=== PATIENT | female | born 1995 | race Two or more races ===

== ENCOUNTER 2024-04-05 10:45 | Observation (INO) | payer MEDICAID ==
[2024-04-05] MEDS ORDERED: PREN-96 PO (11:42)
--- NOTE | 2024-04-05 15:28 | DVHDS2 ---
Physician Discharge Progress N Final Diagnosis: IUP 21 wk, decreased movement Operations or Procedures: Operations or Procedures Doppler FHR present Condition on Discharge: Stable Disposition: Home Discharge Instructions: Diet: Regular Activity: No Restrictions, As Tolerated Follow Up/Referral: as scheduled per Dr. Thomson Medications: No new meds Follow Up Care: Discharge Statement: "Patient was advised to return to the ER or call 911 if any headaches, dizziness, shortness of breath, chest pain, abdominal pain, bleeding, fevers, or worsening of medical condition. Patient was counseled about treatment plan, medications, possible side effects, patientverbalized understanding. All questions were answered to the best of my ability. This discharge took greater then 30 minutes in planning, reviewing documentation, counseling the patient, and discussing with other team members." Visit Coding OBGYN Date of Service: Apr 05, 2024 Billing Provider: LEANNA RUBIO DO POLYMERIZATION ENGINEER Common Visit Codes: 93736-KOS/OBS SAME DATE (LOW) LEANNA RUBIO DO Apr 05, 2024 15:28
== END 2024-04-05 11:57 | disposition home or self-care (01) ==
LOC: LDRP 10:45 → UNDOADMOB 10:45 → LDRP 11:30 → UNDODISOB 11:57
PROVIDERS: ADMIT Obstetrics & Gynecology; ATTEND Obstetrics & Gynecology
DX: O36.8120 Decreased fetal movements, second trimester, not applicable or unspecified (principal); Z3A.21 21 weeks gestation of pregnancy; Z79.899 Other long term (current) drug therapy; Z98.890 Other specified postprocedural states
CPT/HCPCS: 59025; 81002; 94760; G0378

== ENCOUNTER → 2024-06-12 | Outpatient (CLI) | payer MEDICAID ==
[~2024-06-12] MED LIST: PREN-96 PO
[2024-06-12 10:21] LABS: Basophils # (auto) 0 10 ^3/uL (0-0.2); Basophils % (auto) 0.4 % (0.0-2.0); Eosinophils # (auto) 0.1 10 ^3/uL (0-0.8); Eosinophils % (auto) 0.8 % (0.0-7.0); Hematocrit 39.7 % (36.0-46.0); Hemoglobin 13.6 g/dL (12.2-16.2); Lymphocytes # (auto) 2.1 10 ^3/uL (0.4-5.4); Lymphocytes % (auto) 22.2 % (10.0-50.0); Mean Corpuscular Hemoglobin 30.7 pg (28.0-32.0); Mean Corpuscular Hgb Conc. 34.1 g/dL (32.0-36.0); Mean Corpuscular Volume 89.9 fL (80.0-100.0); Monocytes # (auto) 0.6 10 ^3/uL (0-1.3); Monocytes % (auto) 6.7 % (0.0-12.0); Neutrophils # (auto) 6.7 10 ^3/uL (1.6-8.6); Neutrophils % (auto) 69.9 % (37.0-80.0); Nucleated Red Blood Cells % 0.1 %; Platelet Count (auto) 299 10^3/uL (140-450); Red Blood Cells 4.42 10^6/uL (4.0-5.20); Red Cell Distribution Width 12.4 % (11.8-14.3); White Blood Cell 9.5 10^3/uL (4.4-10.8)
[2024-06-12 10:55] LABS: Alanine Aminotransferase 19 U/L (7-40); Alkaline Phosphatase 105 U/L (46-116); Anion Gap 8 (5-15); Aspartate Aminotransferase 16 U/L (13-40); BUN/Creatinine Ratio 10.5 (10.0-20.0); Bilirubin, Total 0.4 mg/dL (0.2-1.0); Calcium 9.2 mg/dL (8.7-10.4); Carbon Dioxide 23 mmol/L (20-31); Chloride 105 mmol/L (98-107); Glucose 81 mg/dL (74-106); Sodium 136 mmol/L (136-145)
[2024-06-12 10:58] LABS: Blood Urea Nitrogen 6 mg/dL (9-23)
[2024-06-13 12:07] LABS: Chlamydia Trachomatis, NAA Negative (Negative); Neisseria gonorrhoeae, NAA Negative (Negative)
== END | disposition home or self-care (01) ==
LOC: LAB 09:36
DX: Z34.00 Encounter for supervision of normal first pregnancy, unspecified trimester (principal); Z3A.00 Weeks of gestation of pregnancy not specified; Z79.899 Other long term (current) drug therapy
CPT/HCPCS: 36415; 80053; 82951; 83036; 85025; 86850; 86900; 86901

== ENCOUNTER 2024-07-29 23:04 | Inpatient (IN) | payer MEDICAID ==
[~2024-07-29] VITALS: Ht 155 cm; Wt 68.0 kg
[2024-07-29] MEDS: ceFAZolin 2 GM/D5W50ml 50 ML IV ONE (00:20)
[2024-07-29] MEDS: LACTATED RINGER'S 1,000 ML IV ONE (23:30)
[2024-07-29] MEDS: LACTATED RINGER'S 1,000 ML IV SCH (23:30)
[2024-07-29 23:50] LABS: Basophils # (auto) 0 10 ^3/uL (0-0.2); Basophils % (auto) 0.4 % (0.0-2.0); Eosinophils # (auto) 0.1 10 ^3/uL (0-0.8); Eosinophils % (auto) 1.3 % (0.0-7.0); Hematocrit 40.1 % (36.0-46.0); Hemoglobin 13.5 g/dL (12.2-16.2); Lymphocytes # (auto) 3.2 10 ^3/uL (0.4-5.4); Lymphocytes % (auto) 31.8 % (10.0-50.0); Mean Corpuscular Hemoglobin 28.9 pg (28.0-32.0); Mean Corpuscular Hgb Conc. 33.8 g/dL (32.0-36.0); Mean Corpuscular Volume 85.5 fL (80.0-100.0); Monocytes # (auto) 0.8 10 ^3/uL (0-1.3); Neutrophils # (auto) 5.9 10 ^3/uL (1.6-8.6); Neutrophils % (auto) 58.5 % (37.0-80.0); Nucleated Red Blood Cells % 0.1 %; Platelet Count (auto) 275 10^3/uL (140-450); Red Blood Cells 4.69 10^6/uL (4.0-5.20); Red Cell Distribution Width 12.9 % (11.8-14.3)
--- NOTE | 2024-07-29 23:53 | DVHHP2 ---
OB CC & HPI Date Date of Admission: Jul 29, 2024 Patient Identification: : 3 Para: 2 EDC: Aug 10, 2024 EGA: 38wks Chief Complaints: Reason for admission: active labor Indication for : desires repeat Admission Nurse Assessment Rev: No History of Present Complaints pt is admitted in active labor,no rom or vag bleeding. pt wants rcs with btl.use of filshie clips ,failure rate d/w pt Past Medical History Cardiac: No pertinent Hx Pulmonary: No pertinent Hx Central Nervous System: No pertinent Hx GI: No pertinent Hx Hemotology/Oncology: No pertinent Hx Hepatobiliary: No pertinent Hx Psychiatric: No pertinent Hx Musculoskeletal: No pertinent Hx Rheumotologic: No pertinent Hx Infectious Disease: No peritnent Hx ENT: No pertinent Hx Renal/: No pertinent Hx Endocrine: No pertinent Hx Dermatology: No pertinent Hx Past Surgical History: OB History OB History Care: Good Care Ultrasounds: Normal mid trimester US Obstetrical Complications: None Medical Complications: None Allergies: Coded Allergies: NO KNOWN ALLERGIES (Unverified , 07/29/24) Home Meds Reported Medications Vit W/ Ferrous Fumara ( One Daily) Daily Tab, 1 TAB PO DAILY, #30 TAB 11 Refills 04/05/24 Current Medications Current Medications Medications (Trade) Dose Ordered Sig/Vernon Route PRN Reason Start Time Stop Time Status Last Admin Lactated Ringer's 1,000 ml @ 125 mls/hr Q8H IV 07/29/24 23:30 Family & Social History Family/Social History Blood Type: Unknown Rubella: unknown RPR/VDRL: Negative GBS Status: Unknown HBsAG: Negative Review of Systems Constitutional: No symptom reported Ears, Nose, & Throat: No symptom reported Eyes: No symptom reported Pulmonary/Respiratory: No symptom reported Cardiovascular: No symptom reported Gastrointestinal: No symptom reported Genitourinary: No symptom reported Musculoskeletal: No symptom reported Skin: No symptom reported Psychiatric: No symptom reported Endocrine: No symptom reported Hemotologic/Lymphatic: No symptom reported OB Admission Exam Physical Exam HEENT: TMs Normal, Fontanelles Normal, Nasal Mucosa Normal, Eyes non-injected, Oropharynx Normal, PERRLA, Moist Membranes, EOMI Heart: Rhythm Normal Lungs: Clear Abdomen: Non tender Extremities: Normal Reflexes: Normal Cervical Dilatation: 5cm Effacement: 75% Station: -2 Membranes: Intact Heart Rate: 130's Accelerations: Accelerations Present Decelerations: No Decelerations Short Term Variability: Present Manager Front Office Variability: Average (6-25) Contractions on Admission: < 5 Minutes Apart OB Plan Plan Admitting Diagnosis: desires REPEAT SECTION with btl iup at 38wks in active labor previous csx2 Plan: Section Other Plan: informed consent obtained,risks ands compl of cs including pe,dvt,infection,bleeding and failure rate with tubal d/w pt.all questions answered pt fully understands wishes to proceed with cs Visit Coding OBGYN Date of Service: Jul 29, 2024 Billing Provider: MORE MONSON DO EDGE STAINER MACHINE Common Visit Codes: [id number] OBS CARE (HIGH) EDGE STAINER MACHINE Procedure Codes: 40107-40- NON-STRESS TEST MORE MONSON DO Jul 29, 2024 23:53
[2024-07-30] VITALS (24 sets, daily range): BP systolic 88–127; BP diastolic 45–77; PULSE 68–109; RESP 14–18; TEMP 98–99; O2SAT 93–100
[2024-07-30] LABS: Urine Bacteria FEW /hpf (None Seen); Urine Blood Negative /uL (Negative); Urine Clarity Clear (Clear); Urine Color Light-Yellow (Yellow); Urine Mucus FEW (None Seen); Urine Protein, UAD Negative (Negative); Urine Specific Gravity 1.015 (1.001-1.035); Urine Squamous Epithelial Cell MOD /hpf (<5); Urine Urobilinogen Normal (Negative); Urine WBC 6 /HPF (0-5); Urine pH 6.5 (5.0-9.0)
[2024-07-30] MEDS: GUM (CHEWING) 1 GUM CHEW CHEW ONE
[2024-07-30] MEDS: LACT. RINGERS/OXYTOCIN 20UNITS 1,000 ML IV ONE
[2024-07-30 00:05] LABS: Alanine Aminotransferase 19 U/L (7-40); Albumin 4.1 g/dL (3.2-4.8); Anion Gap 11 (5-15); Aspartate Aminotransferase 21 U/L (13-40); BUN/Creatinine Ratio 12.9 (10.0-20.0); Blood Urea Nitrogen 9 mg/dL (9-23); Calcium 8.9 mg/dL (8.7-10.4); Chloride 105 mmol/L (98-107); Glucose 84 mg/dL (74-106); Potassium 3.9 mmol/L (3.5-5.1); Sodium 136 mmol/L (136-145); Total Protein 6.8 g/dL (5.7-8.2)
[2024-07-30 00:06] LABS: Bilirubin, Total 0.4 mg/dL (0.2-1.0)
[2024-07-30] MEDS ORDERED: DOCU-94 PO (00:08)
[2024-07-30] MEDS ORDERED: HYDR-4072 PO (00:08)
[2024-07-30] MEDS ORDERED: IBUP-1456 PO (00:08)
[2024-07-30] MEDS ORDERED: ONDANSETRON HCL 4 MG/2 ML VIAL ONE (00:11)
[2024-07-30] MEDS ORDERED: MORPHINE SULF PF 5 MG/10 ML VIAL ONE (00:11)
[2024-07-30] MEDS ORDERED: DexAMETHasone SOD PHOS 10MG/1ML VIAL INJ ONE (00:11)
[2024-07-30] MEDS ORDERED: fentaNYL CITRATE 100 MCG/2 ML VL ONE (00:11)
[2024-07-30] MEDS ORDERED: oxyTOCIN 10 UNIT/ML 10ML VIAL ONE (00:11)
[2024-07-30 00:19] LABS: Alkaline Phosphatase 187 U/L (46-116); Carbon Dioxide 20 mmol/L (20-31)
[2024-07-30 00:20] LABS: Amphetamine Screen, Urine Neg (NEGATIVE); Barbiturate Scree,Urine Neg (NEGATIVE); Benzodiazephine Screen, Urine Neg (NEGATIVE); Cannabinoid Screen, Urine Neg (NEGATIVE); Cocaine Screen, Urine Neg (NEGATIVE); Opiate Scree,Urine Neg (NEGATIVE); Phencyclidine Screen, Urine Neg (NEGATIVE)
[2024-07-30] MEDS ORDERED: SODIUM CHLORIDE LOCK 10 ML ONE (00:33)
[2024-07-30] MEDS ORDERED: PHENYLEPHRINE HCL 10 MG/ML VL ONE (00:33)
--- NOTE | 2024-07-30 01:04 | DVHOP2 ---
Operative Report DATE OF OPERATION: 07/30/24 PREOPERATIVE DIAGNOSES: 1. 38 wks pregnancyinlabor , desires repeat section. 2. Desires bilateral tubal ligation,previous cs x2 POSTOPERATIVE DIAGNOSES: same PROCEDURES: Repeat section with bilateral tubal ligation via Filschie Clips SURGEON: Leanne Thomson D.O./mona ANESTHESIOLOGIST: Lidia klein crna TYPE OF ANESTHESIA : spinal ESTIMATED BLOOD LOSS: 500 mL CONSENT: The patient was informed of the risks and benefits of the procedure. These include but are not limited to , complications of anesthesia, postoperative infection, incomplete relief of symptoms, recurrence of symptoms, damage to blood vessels, nerves and tendons, deep venous thrombosis, pulmonary embolism and possible need for repeat surgery in the future. Surgery was opted. FINDINGS: Baby [g] with apgars [8] and [9]. Grossly normal appearing tubes and ovaries. TISSUE TO PATHOLOGY: Placenta. PROCEDURE IN DETAIL: The patient was taken to the operating room where she was placed under spinal anesthesia. She was then prepped and draped in the usual sterile manner in supine position with a leftward tilt. A Pfannenstiel skin incision was then made 2 cm above the symphysis pubis. This incision was carried to the underlying layer of fascia. The fascia was nicked in the midline and the incision was extended laterally. The superior aspect of the fascial incision was grasped and elevated. Underlying rectus muscle was dissected off bluntly. The same procedure was done to the inferior aspect of the fascial incision. The rectus muscles were then in the midline. Peritoneum was identified and entered. Peritoneal incision was extended superiorly and inferiorly with good visualization of the bladder. Bladder blade was inserted. Vesicouterine peritoneum was identified and entered. Lower uterine segment was incised in a transverse fashion. The was delivered from vertex presentation. The was baby [g] with Apgars of [8] and [9]. Placenta was then removed manually. Uterus was exteriorized and cleared off all clots and debris. Uterine incision was repaired using 0 Vicryl in a double-layered fashion. No bleeding was noted. Bilateral tubal ligation was then performed using Kristal. Placed in the ampullary region and identifying the fimbria distally. The isthmic portion of the right tube was clipped using Filschie Clip. The same procedure was done on the opposite side. No bleeding was noted. Peritoneum was closed using 0 Vicryl, fascia was closed using 0 Maxon, and skin was closed using serena. Estimated blood loss was noted to be 500 mL. The patient tolerated the procedure well. She was taken to the recovery room in stable condition. Visit Coding OBGYN Date of Service: Jul 30, 2024 Billing Provider: LEANNE THOMSON DO MOLD BURNER Common Visit Codes: [id number] INP/OBS CARE (HIGH) MOLD BURNER Procedure Codes: 88121-FTQXC @ TIME OF , 54425-M-[id number] DELIVERY ONLY LEANNE THOMSON DO Jul 30, 2024 01:04
--- NOTE | 2024-07-30 01:06 | POSTOP ---
Post-Operative Note Post-Operative Note Preop Diagnosis iup at 38wks in labor,desires rcs with btl,previous csx2 Postop Diagnosis: same Operation performed rcs with btl Specimen na Anesthesia: Regional Anesthesiologist: ernie Blood Loss(fluid mgmt) 500ml Surgeon More Thomson Student Financial Aid Manager mona Implant filschie Complications & Mgmt none Date 07/30/24 Time 01:04 Visit Coding OBGYN Date of Service: Jul 30, 2024 Billing Provider: MORE THOMSON DO GOLF BALL MARKER Common Visit Codes: [id number] INP/OBS CARE (HIGH) GOLF BALL MARKER Procedure Codes: 95490-OJVET @ TIME OF , 94295-U-USTREHE DELIVERY ONLY MORE THOMSON DO Jul 30, 2024 01:06
[2024-07-30] MEDS: CARBOPROST TROMETHAMINE 250 MCG/1ML VIAL IM ONE (01:10)
[2024-07-30] MEDS: NALBUPHINE HCL 10 MG/1ml INJECTION IV ONE (01:45)
[2024-07-30] MEDS ORDERED: NALOXONE HCL 0.4 MG/ML VIAL IV PRN (01:45)
[2024-07-30] MEDS ORDERED: ONDANSETRON HCL 4 MG/2 ML VIAL IV PRN ×2 (01:45)
[2024-07-30] MEDS: DIPHENOXYLATE W/ATROPINE 2.5 MG TAB ONE (02:05)
[2024-07-30] MEDS: diphenhdrAMINE HCL 50 MG/1 ML VL IV PRN (05:11)
[2024-07-30] MEDS: ACETAMINOPHEN IV 1000 MG/100ML (10MG/ML) IV PRN (05:14)
[2024-07-30 07:06] LABS: Basophils # (auto) 0 10 ^3/uL (0-0.2); Eosinophils # (auto) 0 10 ^3/uL (0-0.8); Hemoglobin 13.3 g/dL (12.2-16.2); Lymphocytes # (auto) 0.9 10 ^3/uL (0.4-5.4); Lymphocytes % (auto) 4.8 % (10.0-50.0); Mean Corpuscular Hemoglobin 28.7 pg (28.0-32.0); Mean Corpuscular Hgb Conc. 33.4 g/dL (32.0-36.0); Monocytes # (auto) 0.5 10 ^3/uL (0-1.3); Monocytes % (auto) 2.7 % (0.0-12.0); Neutrophils # (auto) 16.6 10 ^3/uL (1.6-8.6); Neutrophils % (auto) 92.5 % (37.0-80.0); Platelet Count (auto) 278 10^3/uL (140-450); Red Blood Cells 4.65 10^6/uL (4.0-5.20)
[2024-07-30] MEDS: ceFAZolin 1GM/50ML 50 ML IV SCH (08:46)
[2024-07-30] MEDS: DIPHENOXYLATE W/ATROPINE 2.5 MG TAB PO SCH (10:00)
[2024-07-31] VITALS (8 sets, daily range): BP systolic 98–122; BP diastolic 60–80; PULSE 72–89; RESP 16–18; TEMP 97.7–98.8; O2SAT 97–99
--- NOTE | 2024-07-31 00:32 | DVHPN2 ---
Progress Note Date Seen: Jul 31, 2024 Subjective S: bleeding is less, eating food without issues, denies lightheaded/dizziness, pain well controlled with oral medications, no concerns with urinating, no flatus/BM yet, ambulating well, vital signs Vital Sign Date Time Temp Pulse Resp B/P (MAP) Pulse Ox O2 Delivery O2 Flow Rate FiO2 07/30/24 23:00 98.0 75 17 97/60 (72) 99 98.0 07/30/24 18:50 Room Air Total Intake and Output 07/30/24 07/30/24 07/31/24 15:00 23:00 07:00 Output Total 1700 ml 1300 ml Balance -1700 ml -1300 ml medications Current Medications Medications Dose Ordered Sig/Vernon Route Start Time Stop Time Status Last Admin Dose Admin Lactated Ringer's 1,000 ml @ 125 mls/hr Q8H IV 07/29/24 23:30 07/29/24 23:30 125 MLS/HR Ondansetron HCl 4 mg Q4HP PRN IV 07/30/24 00:00 Diphenhydramine HCl 25 mg Q4HP PRN IV 07/30/24 01:45 07/30/24 05:11 25 MG Ondansetron HCl 4 mg Q4HP PRN IV 07/30/24 01:45 Acetaminophen 1,000 mg [id number] PRN IV 07/30/24 05:15 07/31/24 05:14 07/30/24 20:53 1,000 MG laboratory and microbiology Laboratory Tests 07/30/24 06:20 07/29/24 23:35 Test 07/29/24 23:35 Range/Units Serum Glucose 84 74-106 mg/dL Objective O: VSS Chest: heart sounds normal and lung sounds clear bilaterally Abd: soft, non-tender, fundus at U/firm/midline, active bowel sounds, no rebound or guarding Incision: sylke dressing open to air, clean/dry/intact Ext: Non-tender, No edema, 2+ BLE DTRs Lochia: minimal See lab results Problems(with codes): (1) S/P repeat low transverse Assessment/Plan A/P: 29yo now POD#1 s/p repeat with BTL -Continue with routine post-op PP care Plan discussed with: Patient Visit Coding OBGYN Date of Service: Jul 31, 2024 Billing Provider: KANWAL SAMUELS CNM MANAGER SEARCH ENGINE Common Visit Codes: [id number] INP/OBS CARE(HIGH) KANWAL SAMUELS CNM Jul 31, 2024 00:32
[2024-07-31] MEDS ORDERED: BISACODYL 10 MG RECT SUPP PR PRN (01:15)
[2024-07-31] MEDS ORDERED: HYDROcodone-ACET 5/325MG TAB PO PRN ×2 (01:15)
[2024-07-31] MEDS: SIMETHICONE 80 MG CHEWABLE TABLET PO PRN (01:31)
[2024-07-31] MEDS: IBUPROFEN 800 MG TAB PO PRN (01:31)
[2024-07-31] MEDS: DOCUSATE SOD 100 MG CAP PO SCH (10:00)
[2024-07-31] MEDS: ACETAMINOPHEN 500 MG TAB or CAP PO PRN (20:33)
[2024-07-31] MEDS ORDERED: DOCU-94 PO (23:35)
[2024-07-31] MEDS ORDERED: IBUP-1456 PO (23:35)
--- NOTE | 2024-08-01 01:19 | DVHPN2 ---
Progress Note Date Seen: Aug 01, 2024 Subjective S: bleeding is less, eating food without issues, denies lightheaded/dizziness, pain well controlled with oral medications, no concerns with urinating, passing flatus, no BM yet, ambulating well, well vital signs Vital Sign Date Time Temp Pulse Resp B/P (MAP) Pulse Ox O2 Delivery O2 Flow Rate FiO2 08/01/24 01:04 98.2 07/31/24 23:00 79 17 115/77 (90) 97 07/31/24 19:30 Room Air medications Current Medications Medications Dose Ordered Sig/Vernon Route Start Time Stop Time Status Last Admin Dose Admin Ondansetron HCl 4 mg Q4HP PRN IV 07/30/24 00:00 Diphenhydramine HCl 25 mg Q4HP PRN IV 07/30/24 01:45 07/30/24 05:11 25 MG Ondansetron HCl 4 mg Q4HP PRN IV 07/30/24 01:45 Docusate Sodium 100 mg Q12HR PO 07/31/24 10:00 07/31/24 22:27 100 MG Dimethicone 80 mg QID PRN PO 07/31/24 01:15 07/31/24 14:40 80 MG Bisacodyl 10 mg DAILYP PRN [place] 07/31/24 01:15 Ibuprofen 800 mg Q8HP PRN PO 07/31/24 01:15 08/01/24 01:04 800 MG Acetaminophen 1,000 mg Q8HP PRN PO 07/31/24 20:15 07/31/24 20:33 1,000 MG laboratory and microbiology Laboratory Tests 07/30/24 06:20 07/29/24 23:35 Test 07/29/24 23:35 Range/Units Serum Glucose 84 74-106 mg/dL Objective O: VSS Chest: heart sounds normal and lung sounds clear bilaterally Abd: soft, non-tender, fundus 1 below U/firm/midline, active bowel sounds, no rebound or guarding Incision: sylke dressing open to air, clean/dry/intact Ext: Non-tender, No edema, 2+ BLE DTRs Lochia: minimal See lab results Problems(with codes): (1) S/P repeat low transverse Assessment/Plan A: 29yo now POD#2 s/p repeat with BTL Rh+ P: D/C home today Rx sent to pharmacy precautions and preeclampsia warning signs reviewed F/U with [facility] office in 1 week Plan discussed with: Patient Visit Coding OBGYN Date of Service: Aug 01, 2024 Billing Provider: KANWAL SAMUELS CNM COATER CARBON PAPER Common Visit Codes: [id number] INP/OBS CARE(HIGH) KANWAL SAMUELS CNM Aug 01, 2024 01:19
--- NOTE | 2024-08-01 01:20 | DVHDS2 ---
Obstetrics Discharge Summary Obstetrics Discharge Summary Date of Admission: Jul 29, 2024 Date of Discharge: Aug 01, 2024 Reason For Admission: Onset of Labor, Section (Repeat) Procedures: NST Intrapartum Procedures: (LTCS), Tubal Ligation Procedures: Antibiotics, Hct/date: (07/30/24), Hgb/date: (07/30/24) Operative Complicat: None Discharge Diagnosis: Term -Delivered Discharge Information: Activity (as tolerated, no heavy lifting and nothing in the vagina for 6 weeks), Diet (Routine), Medications (Rx sent), Instructions (Routine), Discharge to (Home), Accompanied by (partner), Discarge date (08/01/24) Visit Coding OBGYN Date of Service: Aug 01, 2024 Billing Provider: KANWAL SAMUELS CNM LOADER OPERATOR SUPERVISOR Common Visit Codes: 33072-ORD/OBS DISCH DAY <30MIN KANWAL SAMUELS CNM Aug 01, 2024 01:20
[2024-08-01 03:30] VITALS: BP 110/57; PULSE 85; RESP 16; TEMP 98.2; O2SAT 99
[2024-08-01 07:30] VITALS: BP 113/80; PULSE 80; RESP 18; TEMP 98.4; O2SAT 98
[2024-08-01 11:30] VITALS: BP 112/78; PULSE 75; RESP 18; TEMP 98; O2SAT 99
[2024-08-01 15:30] VITALS: BP 110/76; PULSE 79; RESP 18; TEMP 98.2; O2SAT 99
== END 2024-08-01 17:23 | disposition home or self-care (01) | DRG 539 ==
LOC: LDRP 23:04 → OBSVTOIN 23:04 → LDRP 07-30 05:13
PROVIDERS: ADMIT Obstetrics & Gynecology; ATTEND Obstetrics & Gynecology
PROC: 0UL70CZ Occlusion of Bilateral Fallopian Tubes with Extraluminal Device, Open Approach (ICD-10-PCS; 2024-07-30)
PROC: 10D00Z1 Extraction of Products of Conception, Low, Open Approach (ICD-10-PCS; principal; 2024-07-30 00:22)
DX: O34.211 Maternal care for low transverse scar from previous cesarean delivery (principal); Z30.2 Encounter for sterilization; Z37.0 Single live birth; Z3A.38 38 weeks gestation of pregnancy
CPT/HCPCS: 36415; 59025; 80053; 80307; 81001; 85025; 86780; 86850; 86900; 86901; 94760; 94762; 96360; 96361; 96374; G0378; J0131; J1100; J2405; J2590